=== PATIENT | female | born 2005 | race Caucasian/White ===

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

== ENCOUNTER 2024-03-07 16:33 | Outpatient (CLI) | payer OTHER, BC, SELFPAY ==
--- NOTE | 2024-03-07 16:43 | XRR_ITS ---
PROCEDURE INFORMATION: Exam: XR Chest Exam date and time: 03/07/2024 4:51 PM Age: 18 years old Clinical indication: Right-sided; Patient HX: Provider specifically asked for ap and lat for 2v chest. History-- clavicle pain x 2 yrs, mainly on right side TECHNIQUE: Imaging protocol: Radiologic exam of the chest. Views: 2 views. COMPARISON: No relevant prior studies available. FINDINGS: Lungs: No focal consolidation. Pleural spaces: No evidence of pneumothorax. No evidence of pleural effusion. Heart/Mediastinum: Cardiomediastinal silhouette is within normal limits. Bones/joints: No evidence of acute osseous abnormality. Clavicles are grossly unremarkable. XR/XR chest 2V* [id number] IMPRESSION: 1. No acute cardiopulmonary abnormality.
== END 2024-03-07 16:34 | disposition home or self-care (01) ==
PROVIDERS: Family Provider Family Medicine; PCP Family Medicine; Visit Provider Nurse Practitioner Family
DX: M89.8X1 Other specified disorders of bone, shoulder (principal)
CPT/HCPCS: 71046